=== PATIENT | female | born 1935 | race Caucasian/White ===

== ENCOUNTER 2016-05-08 15:56 | Observation (INO) | payer MEDICARE, OTHER ==
[~2016-05-08 15:56] MED LIST: ALBUTEROL17 GM; ALEVE220 M4 PO; ARICEPT10 M2 PO; AROMASIN25 M1 PO; BIAXIN500 MG; CALTRATE 600+D1 EAC1 PO; EAC PO; NAMENDA10 M1 PO; NIACIN; NIACIN250 MG; NIACIN500 MG; PROMETHAZINE-C118 ML PO; PROTONIX40 MG; VITAMIN D31000 UNI3 PO; XALATAN2.5 M1 EACH EYE; XARELTO20 M1 PO; [UNRECOGNIZED DRUG - OTHER] PO
[2016-05-08 18:39] LABS: HCT-HEMATOCRIT 36.4 % (34.0-49.0); HGB-HEMOGLOBIN 11.8 gm/dl (12.0-15.5); IMMATURE GRANULOCYTES ABSOLUTE 0.03 tho/cmm (0-0.03); IMMATURE GRANULOCYTES PERCENT 0.3 % (0-0.3); LYMPH % 5.3 % (20-45); LYMPH ABSOLUTE COUNT 0.6 tho/cmm (0.8-4.5); MCH (MEAN CORPUSCULAR HGB) 26.3 pg (28.0-32.0); MCHC MEAN CORPUSCULAR HGB CONC 32.4 % (32.0-36.0); MCV (MEAN CELL VOLUME) 81.3 fl (82.0-96.0); MEAN PLATELET VOLUME 10.2 cmc (9.4-12.4); MONO % 5.9 % (0-12); MONOCYTE ABSOLUTE COUNT 0.7 tho/cmm (0.0-1.2); NEUTROPHIL ABSOLUTE COUNT 9.8 tho/cmm (1.6-8.0); NEUTROPHIL-AUTOMATED 9.8 tho/cmm (1.6-8.0); NEUTROPHILS % 88.5 % (40-80); PLATELET COUNT 228 tho/cmm (150-450); RED BLOOD COUNT 4.48 mil/cmm (4.00-5.20); RED CELL DISTRIBUTION WIDTH 15.2 % (12.4-16.4); WHITE BLOOD COUNT 11.1 tho/cmm (4.0-10.0)
[2016-05-08 18:48] LABS: ANION GAP 12 mmol/L (5-15); BLOOD UREA NITROGEN 27 mg/dl (6-25); CALCIUM 8.8 mg/dl (8.6-10.2); CARBON DIOXIDE-VENOUS 28 mmol/L (22-29); CHLORIDE 95 mmol/L (98-110); CREATININE 0.95 mg/dl (0.67-1.17); GLUCOSE 143 mg/dl (65-120); POTASSIUM 3.7 mmol/L (3.4-5.0); SODIUM 135 mmol/L (135-146); eGFR VALUE FOR BLACK >60 mL/Min
[2016-05-08] MEDS ORDERED: PREDNISOLO15 MG/5 M1 PO (19:32)
== END 2016-05-09 14:53 ==
LOC: EDMED 15:56 → EMR2 21:18 → 5EB 22:20
PROVIDERS: Emergency Medicine; ADMIT Internal Medicine
DX: R63.0 Anorexia (principal); F03.90 Unspecified dementia, unspecified severity, without behavioral disturbance, psychotic disturbance, mood disturbance, and anxiety; J38.00 Paralysis of vocal cords and larynx, unspecified; K22.4 Dyskinesia of esophagus; C79.51 Secondary malignant neoplasm of bone; Z79.52 Long term (current) use of systemic steroids; Z79.01 Long term (current) use of anticoagulants; Z79.899 Other long term (current) drug therapy; Z88.1 Allergy status to other antibiotic agents; Z88.2 Allergy status to sulfonamides; Z85.3 Personal history of malignant neoplasm of breast; Z90.710 Acquired absence of both cervix and uterus; Z90.721 Acquired absence of ovaries, unilateral; Z90.13 Acquired absence of bilateral breasts and nipples
CPT/HCPCS: C1751; G0378; G8978-GP-CK; G8979-GP-CJ; G8980-GP-CJ; J7030